=== PATIENT | female | born 1955 | race Caucasian/White ===

== ENCOUNTER 2019-09-21 05:02 | Inpatient (IN) | payer OTHER ==
[~2019-09-21] VITALS: Ht 154.9 cm; Wt 122.5 kg
[2019-09-21] VITALS (7 sets, daily range): BP systolic 118–148; BP diastolic 57–94
[~2019-09-21 05:02] MED LIST: ABILIFY 2 MG2 MG PO; ABILIFY 5 MG TAB5 M1 PO; ADVAIR 500-501 EACH INH; ALLOPURINOL 10100 M1 PO; ASPIR 8181 MG PO; CELEXA 20 MG TA20 M1 PO; CELEXA20 MG PO; DOCUSATE SODIU100 MG PO; FLEXERIL PO; FOLIC ACID 1 MG1 MG PO; GLUCOPHAGE500 MG PO; HYDROCODONE-AP1 EAC6 PO; JANUVIA100 MG PO; KLOR-CON 1010 MEQ PO; LASIX 20 MG TAB20 MG PO; LASIX 40 MG TAB40 M1 PO; LISINOPRIL2.5 MG PO; LORATIDINE 10 M10 M1 PO; METFORMIN HCL500 MG PO; METOPROLOL SUCC25 M1 PO; MOBIC15 MG PO; POTASSIUM20 PO; PRENATAL COMPL1 EACH PO; PRINIVIL5 MG PO; RESTORIL30 MG PO; SINGULAIR 10 MG10 M1 PO; SPIRIVA PO; SPIRIVA18 MCG INH; SYMBICORT160 MCG/4. INH; TOPROL XL25 MG PO; TRAMADOL 50 MG50 MG PO; ULTRAM 50MG TAB50 MG PO; VENTOLIN HFA 1818 GM INH; XARELTO10 MG PO; ZANTAC 150MG T150 M1 PO; ZANTAC 150MG T150 MG PO; ZOCOR 20 MG TAB20 M1 PO; ZOCOR20 MG PO
[2019-09-21] MEDS ORDERED: DILAUDID4 MG PO (05:15)
[2019-09-21] MEDS ORDERED: PROTONIX 20 MG20 MG PO (05:17)
[2019-09-21] MEDS ORDERED: LIPITOR 10 MG10 M1 PO (05:18)
[2019-09-21 06:06] LABS: ABSOLUTE NEUTROPHILS 5.7 thou/uL (1.4-8.2); BASOPHILS 0.7 % (0.0-2.0); EOSINOPHILS 3.6 % (0.0-3.0); HEMATOCRIT 38.5 % (37.0-47.0); HEMOGLOBIN 12.1 gm/dL (12.0-15.0); LYMPHOCYTES 28.2 % (24.0-44.0); MCHC 31.5 g/dL (28.0-37.0); MONOCYTES 6.8 % (1.0-8.0); PLATELET COUNT 272 thou/uL (150-400); POLYS 60.7 % (36.0-66.0); RBC 4.48 mil/uL (4.20-5.00); RDW 13.7 % (10.5-14.5); WBC 9.3 thou/uL (4.0-11.0)
[2019-09-21 06:36] LABS: ANION GAP 4 mmol/L (7-16); BUN 8 mg/dL (7-18); CALCIUM 9.5 mg/dL (8.5-10.1); CHLORIDE 92 mmol/L (98-107); CO2 40 mmol/L (21-32); CREATININE 0.8 mg/dL (0.6-1.0); GLUCOSE 149 mg/dL (74-106); SODIUM 136 mmol/L (136-145); TROPONIN-I <0.06 ng/mL (<0.06)
[2019-09-21 06:39] LABS: POTASSIUM 2.8 mmol/L (3.5-5.1)
[2019-09-21 08:27] LABS: ALBUMIN 3.3 g/dL (3.4-5.0); MAGNESIUM 1.5 mg/dL (1.8-2.4); PHOSPHORUS 3.3 mg/dL (2.5-4.9); TOTAL PROTEIN 6.4 g/dL (6.4-8.2)
[2019-09-21 10:00] LABS: TSH 1.518 uIU/mL (0.358-3.740)
--- NOTE | 2019-09-21 15:04 | EKG ---
[address] [address] ELECTROCARDIOGRAM REPORT Name: ESTEVAN MOTTA Room #: 209-P ADM IN .R.#: [id number] Admission: 09/21/19 Attend Phys: Best Ellis MD Discharge: Date of : 59 Report #: [id number] THIS REPORT FOR: //name// [facility] ED Test Date: 2019-09-21 Test Time: 05:32:53 Pat Name: ESTEVAN MOTTA Department: Room: [facility] Gender: F [employer]visor [employer]: MARIUSZ : 1955 Requested By: Abhinav Wong Order Number: [id number] MD: Jg Mcallister Measurements Intervals [place] Rate: 102 P: 78 PA: 153 QRS: 85 QRSD: 73 T: 44 QT: 346 QTc: 451 Interpretive Statements Sinus tachycardia Borderline right axis deviation Low voltage, precordial leads Compared to ECG 06/10/2016 09:00:56 Sinus rhythm no longer present Electronically Signed On 09-21-2019 15:03:44 [employer]UTCHER TENDER by Jg Mcallister [email or web address] <ELECTRONICALLY SIGNED> By: Jg Mcallister MD 09/21/19 1503 [id number] 0532 Jg Mcallister MD /EPI
[2019-09-21 23:10] LABS: GLYCOHEMOGLOBIN (HGB A1C) 7.8 % (4.8-5.6)
[2019-09-22 05:12] VITALS: BP 116/74
[2019-09-22 07:15] VITALS: BP 138/73
[2019-09-22 12:00] VITALS: BP 138/77
[2019-09-22 15:39] VITALS: BP 130/70
[2019-09-22 15:46] LABS: HEMATOCRIT 39.2 % (37.0-47.0); HEMOGLOBIN 12.5 gm/dL (12.0-15.0); MCH 27.4 pg (26.0-34.0); MCHC 31.8 g/dL (28.0-37.0); RBC 4.56 mil/uL (4.20-5.00); RDW 13.8 % (10.5-14.5); WBC 14.7 thou/uL (4.0-11.0)
[2019-09-22 15:56] LABS: CALCIUM 10.1 mg/dL (8.5-10.1); MAGNESIUM 1.8 mg/dL (1.8-2.4); POTASSIUM 3.9 mmol/L (3.5-5.1)
[2019-09-22 19:17] VITALS: BP 135/80
[2019-09-22 23:34] VITALS: BP 132/83
[2019-09-23 04:30] LABS: HEMATOCRIT 38.9 % (37.0-47.0); HEMOGLOBIN 12.2 gm/dL (12.0-15.0); MCH 27.2 pg (26.0-34.0); MCHC 31.4 g/dL (28.0-37.0); MCV 86.6 fL (80.0-100.0); RBC 4.5 mil/uL (4.20-5.00); RDW 14.1 % (10.5-14.5); WBC 13.6 thou/uL (4.0-11.0)
[2019-09-23 04:53] LABS: CALCIUM 9.5 mg/dL (8.5-10.1); CREATININE 0.8 mg/dL (0.6-1.0); MAGNESIUM 1.7 mg/dL (1.8-2.4)
[2019-09-23 05:42] VITALS: BP 118/85
[2019-09-23 07:00] VITALS: BP 113/80
[2019-09-23 11:30] VITALS: BP 123/77
[2019-09-23 15:50] VITALS: BP 133/92
[2019-09-23 20:16] VITALS: BP 132/76
[2019-09-24 04:35] LABS: CALCIUM 9.5 mg/dL (8.5-10.1); CREATININE 0.8 mg/dL (0.6-1.0); MAGNESIUM 2.3 mg/dL (1.8-2.4); POTASSIUM 4.7 mmol/L (3.5-5.1)
[2019-09-24 04:52] LABS: HEMATOCRIT 39.7 % (37.0-47.0); HEMOGLOBIN 12.5 gm/dL (12.0-15.0); MCH 27.2 pg (26.0-34.0); MCHC 31.5 g/dL (28.0-37.0); MCV 86.4 fL (80.0-100.0); RBC 4.59 mil/uL (4.20-5.00); RDW 14.3 % (10.5-14.5); WBC 12.1 thou/uL (4.0-11.0)
[2019-09-24 05:31] VITALS: BP 132/90
[2019-09-24 07:34] VITALS: BP 144/88
[2019-09-24 11:36] VITALS: BP 141/92
[2019-09-24 17:10] VITALS: BP 138/84
[2019-09-24 21:06] VITALS: BP 137/88
[2019-09-25 04:22] VITALS: BP 122/70
[2019-09-25 05:52] LABS: HEMATOCRIT 40.7 % (37.0-47.0); HEMOGLOBIN 12.8 gm/dL (12.0-15.0); MCH 27.3 pg (26.0-34.0); MCHC 31.4 g/dL (28.0-37.0); MCV 86.8 fL (80.0-100.0); RBC 4.69 mil/uL (4.20-5.00); RDW 14.1 % (10.5-14.5); WBC 9.8 thou/uL (4.0-11.0)
[2019-09-25 06:11] LABS: ANION GAP < 0 mmol/L (7-16); BUN 27 mg/dL (7-18); CALCIUM 9.6 mg/dL (8.5-10.1); CHLORIDE 94 mmol/L (98-107); CO2 42 mmol/L (21-32); CREATININE 0.8 mg/dL (0.6-1.0); GLUCOSE 154 mg/dL (74-106); MAGNESIUM 2.3 mg/dL (1.8-2.4); POTASSIUM 4.6 mmol/L (3.5-5.1); SODIUM 135 mmol/L (136-145)
[2019-09-25 08:54] VITALS: BP 138/92
[2019-09-25 10:25] LABS: BE(vivo) 6.5 mmol/L (-2 to +3); HCO3 34.1 mmol/L (22.0-26.0); PCO2 62.6 mmHg (35.0-45.0); PO2 68.3 mmHg (80.0-100.0); pH 7.354 (7.360-7.450); sO2 92.4 % (92.0-98.0)
--- NOTE | 2019-09-25 10:34 | 2DMMODE ---
[facility] [address] [place] [address] 2 D/M-MODE ECHOCARDIOGRAM Name: KALIAESTEVAN Peace Room #: 209-P ADM IN ..#: [id number] Admission: 09/21/19 Attend Phys: Best Ellis, Discharge: Date of : 59 Report #: [id number] THIS REPORT FOR: //name// APPROVED REPORT Study performed: 09/25/2019 09:37:44 EXAM: Comprehensive 2D, Doppler, and color-flow Echocardiogram Patient Location: Bedside Room #: 209 Status: routine BSA: 2.13 HR: 90 bpm BP: 138/92 mmHg Rhythm: NSR Other Information Study Quality: Fair/Poor parasternal window. Technically limited study due to morbid obesity, COPD, unable to position, heavy breathing. Indications Question pulmonary hypertension. Short of breath. Hx: CHF, COPD, DM, HLP. 2D Dimensions RVDd: 34.54 mm IVSd: 12.00 (7-11mm) LVDd: 40.91 mm PWd: 12.00 (7-11mm) LVDs: 28.95 (25-40mm) Aortic Root: 34.25 mm Volumes Left Atrial Volume (Systole) Single Plane 4CH: 30.52 mL Single Plane 2CH: 37.10 mL LA ESV Index: 17.00 mL/m2 Aortic Valve AoV Peak Jose.: 1.53 m/s AO Peak Gr.: 9.31 mmHg LVOT Max P.51 mmHg LVOT Max V: 1.06 m/s Mitral Valve E/A Ratio: 0.6 [facility] [address] [place] [address] 2 D/M-MODE ECHOCARDIOGRAM Name: ESTEVAN MOTTA Room #: 209-P [facility] IN [facility]#: [id number] Admission: 09/21/19 Attend Phys: Best Ellis, Discharge: Date of : 59 Report #: [id number] MV Decel. Time: 323.66 ms MV E Max Jose.: 0.74 m/s MV A Jose.: 1.16 m/s MV PHT: 93.86 ms IVRT: 89.97 ms Pulmonary Vein P Vein S: 0.45 m/s P Vein D: 0.37 m/s P Vein S/D Ratio: 1.22 Tricuspid Valve TR Peak Jose.: 2.72 m/s RAP Estimate: 10.00 mmHg TR Peak Gr.: 30.00 mmHg PA Pressure: 40.00 mmHg Left Ventricle The left ventricle is normal size. There is grossly normal LV segmental wall motion. Mild concentric left ventricular hypertrophy. Left ventricular systolic function is normal. LVEF is 60-65%. Mild diastolic dysfunction is present (impaired relaxation pattern). Right Ventricle The right ventricle is normal size. The right ventricular systolic function is normal. Atria The left atrium size is normal. The right atrium size is normal. Aortic Valve The aortic valve is poorly visualized. No aortic regurgitation is present. There is no aortic valvular stenosis. Mitral Valve The mitral valve is normal in structure. There is no mitral valve regurgitation noted. No evidence of mitral valve stenosis. Tricuspid Valve The tricuspid valve is normal in structure. Mild tricuspid regurgitation. Estimated PAP is 40mmHg. Pulmonic Valve Pulmonic valve is not well visualized. [facility] [address] [place] [address] 2 D/M-MODE ECHOCARDIOGRAM Name: KALIAESTEVAN Peace Room #: 209-P [facility] IN ..#: [id number] Admission: 09/21/19 Attend Phys: Best Ellis, Discharge: Date of : 59 Report #: [id number] Great Vessels The aortic root is normal in size. Ascending aorta is not well visualized. IVC is normal in size and collapses <50% with inspiration. Pericardium There is no pericardial effusion. <Conclusion> The left ventricle is normal size. LVEF is 60-65%. The right ventricle is normal size. The aortic valve is poorly visualized. The mitral valve is normal in structure. The tricuspid valve is normal in structure. Mild tricuspid regurgitation. Estimated PAP is 40mmHg. Pulmonic valve is not well visualized. There is no pericardial effusion. <ELECTRONICALLY SIGNED> By: Flaquito Aparicio MD 09/25/19 1033 1033 1033 Flaquito Aparicio MD /INF
[2019-09-25 10:45] VITALS: BP 166/85
[2019-09-25 17:38] VITALS: BP 124/72
[2019-09-25 20:17] VITALS: BP 117/72
[2019-09-26 05:08] VITALS: BP 134/77
[2019-09-26 05:38] LABS: HEMATOCRIT 39.2 % (37.0-47.0); HEMOGLOBIN 12.5 gm/dL (12.0-15.0); MCH 27.8 pg (26.0-34.0); MCHC 31.9 g/dL (28.0-37.0); MCV 87.2 fL (80.0-100.0); RBC 4.5 mil/uL (4.20-5.00); RDW 14.2 % (10.5-14.5); WBC 10.5 thou/uL (4.0-11.0)
[2019-09-26 05:49] LABS: ANION GAP < 0 mmol/L (7-16); BUN 28 mg/dL (7-18); CALCIUM 9.2 mg/dL (8.5-10.1); CHLORIDE 96 mmol/L (98-107); CO2 44 mmol/L (21-32); CREATININE 0.8 mg/dL (0.6-1.0); GLUCOSE 184 mg/dL (74-106); MAGNESIUM 2.2 mg/dL (1.8-2.4); POTASSIUM 4.8 mmol/L (3.5-5.1); SODIUM 136 mmol/L (136-145)
[2019-09-26 08:35] VITALS: BP 141/91
[2019-09-26 11:40] VITALS: BP 134/79
[2019-09-26 16:20] VITALS: BP 118/83
[2019-09-26 20:02] VITALS: BP 119/76
[2019-09-27 04:45] VITALS: BP 127/75
[2019-09-27 07:10] VITALS: BP 137/74
--- NOTE | 2019-09-27 08:09 | HC ---
[facility] [place] [address] CONSULTATION Name: ESTEVAN MOTTA Room #: 209-P ADM IN M.R.#: [id number] Admission: 09/21/19 Attend Phys: Best Ellis MD Discharge: Date of : 59 Report #: [id number] THIS REPORT FOR: //name// CC: FAM unknown Best Ellis DATE OF SERVICE: 09/26/2019 ENDOCRINE CONSULTATION NOTE CONSULTING PHYSICIAN: Dr. Miller. REASON FOR CONSULTATION: Uncontrolled type 2 diabetes mellitus, severe hyperglycemia. HISTORY OF PRESENT ILLNESS: This is a 64-year-old female patient whose medical background is significant for COPD with chronic oxygen use and long-term prednisone use as well as hypertension, obesity, hyperlipidemia, depression and type 2 diabetes mellitus. The patient notes that she has chronic issues with COPD, which had prompted her to quit smoking 8 months ago, but with little improvement of her respiratory state. She says that as of 2 months ago, her breathing state had deteriorated further to where she had to start on prednisone therapy, which was maintained for the most part at 10 mg daily for at least 2 months. She said that this was discontinued about 2 weeks ago, which coincided with the time that she developed a sinus infection. A few days prior to presentation, the patient's level of shortness of breath had progressed and she presented to the hospital where she was admitted for further care and monitoring. The patient notes that she was diagnosed with type 2 diabetes mellitus in 2005 and that although she was initially treated with metformin with excellent results and it was completely stopped about a year ago in the setting of a UTI, urosepsis and acute renal insufficiency. Despite recovering her kidney function back to normal, she was switched to Januvia monotherapy and said that she had done rather well on this with her historic hemoglobin A1c over the past 6 months coming back at 6.4 and 5.8%. She admits that she has not been monitoring her blood glucose levels at home due to running out of test strips lately. She is not aware of complications pertaining to diabetic retinopathy or diabetic nephropathy and is not known to have heart disease. However, she does report minimal issues that are nondisruptive with peripheral diabetic neuropathy affecting her feet for the most part. The patient is also hyperlipidemic and is maintained on treatment with atorvastatin therapy. [address] [address] CONSULTATION Name: ESTEVAN MOTTA Peace Room #: 209-P [facility] IN .R.#: [id number] Admission: 09/21/19 Attend Phys: Best Ellis MD Discharge: Date of : 59 Report #: [id number] REVIEW OF SYSTEMS: CONSTITUTIONAL: Fatigue, tiredness, but not fever or chills. HEENT: Sinus issues, sinus pain, sinus congestion, but no ear discharge. PULMONARY: Progressive shortness of breath and cough without hemoptysis. The patient's baseline is noted for COPD that is oxygen and more or less prednisone dependent. CARDIAC: Negative for chest pain, palpitations, but noted for dyspnea on exertion and lower extremity edema. GASTROINTESTINAL: Noted for intermittent issues with abdominal distention, abdominal discomfort, nausea, but not vomiting. NEUROLOGY: Negative for loss of consciousness, seizure activity, but noted for baseline peripheral neuropathy issues. PSYCHIATRIC: Negative for delusions, hallucinations, but the patient has baseline depression difficulties. SKIN: Negative for rash, itching, ulceration or other major abnormalities. Otherwise, review of system is noncontributory other than those mentioned in HPI. PAST MEDICAL HISTORY: 1. Type 2 diabetes mellitus. 2. Peripheral diabetic neuropathy. 3. Hyperlipidemia. 4. COPD, oxygen dependent and prednisone dependent. 5. Obstructive sleep apnea. 6. Obesity. 7. Gout. 8. Hypertension. ACTIVE MEDICATIONS: Include metoprolol 25 mg daily, atorvastatin 40 mg daily, allopurinol 100 mg daily, Lasix 80 mg daily, Singulair 10 mg daily, Celexa 20 mg daily, Abilify 5 mg daily, Spiriva daily, aspirin 81 mg daily, Januvia 100 mg daily, potassium chloride or K-Dur 20 mEq daily, Dilaudid 4 mg q.i.d. p.r.n., Protonix 20 mg daily. DRUG ALLERGIES: SULFA, PENICILLIN. FAMILY HISTORY: Noted for heart disease and hypertension. SOCIAL HISTORY: The patient is a former long-term smoker. She quit smoking about 8 months ago. Denies active use of alcohol or illicit drugs. She lives with her daughter. PHYSICAL EXAMINATION: GENERAL: Pleasant female patient who is not in apparent pain or distress. VITAL SIGNS: Blood pressure is 134/79 mmHg, heart rate is 89 beats per minute, respiration 18 per minute, temperature 36.[address] [address] CONSULTATION Name: ESTEVAN MOTTA Room #: 209-P [facility] IN M.R.#: [id number] Admission: 09/21/19 Attend Phys: Best Ellis MD Discharge: Date of : 59 Report #: [id number] CONSTITUTIONAL: The patient appears comfortable, not in apparent distress. HEENT: Anicteric sclerae. Intact extraocular motion. She has nasal oxygen cannula on. NECK: Supple, without JVD, carotid bruits or lymphadenopathy. I do not appreciate thyromegaly. CHEST: Noted for limited air entry bilaterally with scattered rales and rhonchi. HEART: Regular rate and rhythm without murmurs or gallops. ABDOMEN: Soft and lax. No guarding. Generalized discomfort on deep palpation due to ventral hernia. Active bowel sounds. EXTREMITIES: Lower extremity, trace ankle edema bilaterally. Diminished sensation to light touch. Active pedal pulses. No skin deformities or ulcerations. NEUROLOGIC: Awake, alert and oriented to time, place and person. The remainder of her examination is nonfocal other than for the noted peripheral sensory deficits. PSYCHIATRIC: Pleasant, interactive. Normal mood and affect. LABORATORY RESULTS: Blood glucose values have fluctuated widely, but often been over 250 mg/dL and had a recent high of 490 mg/dL. Sodium 136, potassium 4.8, chloride 96, CO2 of 44, anion gap 0, BUN 28, creatinine 0.8, glucose 184, AST 18, total bilirubin 0.2, calcium 9.2, phosphorus 3.9, magnesium 2.2, alkaline phosphatase 98, total protein 6.4, albumin 3.3, EGFR 73. Lactic acid 2.3. Troponin negative. BNP 104. INR 1.0. White blood count 10.5, hemoglobin 12.5, hematocrit 39.2, platelets 283. TSH 1.51. Hemoglobin A1c 7.8%. ASSESSMENT AND PLAN: 1. Type 2 diabetes mellitus. As noted above, the patient had historically maintained very good control with Januvia monotherapy and prior to that with metformin monotherapy. Her current hemoglobin A1c reflects an uncontrolled outlook of diabetes, which she acknowledges and believes is due to the prednisone that was started 2 months ago and I am inclined to think the same as well. Nonetheless, despite this departure from adequate control, hemoglobin A1c of 7.8 reflects an average glycemic outlook of 150-160 mg/dL. That said, the current glycemic outlook is a cool departure from her usual glycemic pattern and is primarily due to high dose glucocorticoid therapy that is being delivered intravenously as well as the acute stress of her intercurrent illness. I discussed these variables with her at length and she seems to have a very good understanding of these variables. Short term, I would certainly work towards achieving a blood glucose range of 100-180 mg/dL to improve the patient's outlook on morbidity related to her hospital stay and help improve her overall clinical outcome. I certainly would like to use metformin in the setting of steroid-induced severe hyperglycemia. However, the patient received intravenous contrast based CT scan study of her chest 2 days ago and I would like to resume metformin as of tomorrow for added safety precaution. Her kidney function is rather permissible of doing that. Also, the patient was maintained on [address] [address] CONSULTATION Name: ESTEVAN MOTTA Room #: 209-P [facility] IN M.R.#: [id number] Admission: 09/21/19 Attend Phys: Best Ellis MD Discharge: Date of : 59 Report #: [id number] monotherapy at home and she is not currently on any. I will move on to place her on Tradjenta 5 mg daily to provide for that action. In steroid-induced hyperglycemia, the most remarkable glycemic excursions are noted after meals and therefore, I truly agree with covering her meals, specifically with Humalog at a dose of 10 units t.i.d. a.c. For added coverage, I will provide coverage with Lantus at 14 units q.p.m. as well and provide coverage as needed with Humalog supplemental scale low intensity. Blood glucose monitoring will be conducted a.c. and at bedtime and further adjustments will be needed based on these blood sugars. I am hopeful that the patient will not need insulin therapy long-term and that once her steroid treatment is tapered off, we could probably wean off that insulin support. 2. Hyperlipidemia. The patient is on atorvastatin therapy and tolerates it well, she is to continue with the same. 3. Hypertension. The patient is currently on metoprolol and furosemide and tolerates these well, she is to continue the same as her blood pressure is under good control. I have reviewed the patient's clinical care notes, laboratory data, radiologic data past and present for over 35 minutes. I appreciate this consultation by Dr. Miller. <ELECTRONICALLY SIGNED> By: Rain Vargas MD 09/27/19 0809 [id number] Rain Vargas MD /nt
[2019-09-27 11:05] VITALS: BP 148/100
[2019-09-27 16:14] VITALS: BP 141/85
[2019-09-27 20:30] VITALS: BP 138/80
[2019-09-28 01:07] VITALS: BP 141/70
[2019-09-28 08:00] VITALS: BP 141/83
[2019-09-28 15:00] VITALS: BP 117/74
[2019-09-28 20:13] VITALS: BP 122/69
[2019-09-29 07:50] VITALS: BP 100/67
[2019-09-29] MEDS ORDERED: MUCINEX600 MG PO (14:12)
[2019-09-29] MEDS ORDERED: GLUCOPHAGE XR750 MG PO (14:13)
[2019-09-29] MEDS ORDERED: TRADJENTA5 MG PO (14:35)
[2019-09-29] MEDS ORDERED: LANTUS SUBQ (14:35)
[2019-09-29] MEDS ORDERED: RAYOS5 MG PO (14:35)
[2019-09-29] MEDS ORDERED: NYSTATIN100000 UNI SW&SWALLOW (14:35)
[2019-09-29 15:32] VITALS: BP 100/67
[2019-09-29 16:10] VITALS: BP 122/58
== END 2019-09-29 18:30 | disposition home or self-care (01) | DRG 189 ==
LOC: ER 05:02 → EROBS 06:58 → 2N 06:58 → 4W 09-28
PROVIDERS: Emergency Medicine; Internal Medicine; ADMIT Internal Medicine
DX: J96.20 Acute and chronic respiratory failure, unspecified whether with hypoxia or hypercapnia (principal); E66.2 Morbid (severe) obesity with alveolar hypoventilation; J44.1 Chronic obstructive pulmonary disease with (acute) exacerbation; Z68.43 Body mass index [BMI] 50.0-59.9, adult; I50.30 Unspecified diastolic (congestive) heart failure; E11.65 Type 2 diabetes mellitus with hyperglycemia; E78.5 Hyperlipidemia, unspecified; E11.40 Type 2 diabetes mellitus with diabetic neuropathy, unspecified; E66.9 Obesity, unspecified; M10.9 Gout, unspecified; F32.9 Major depressive disorder, single episode, unspecified; E87.6 Hypokalemia; G89.29 Other chronic pain; I11.0 Hypertensive heart disease with heart failure; I27.20 Pulmonary hypertension, unspecified; Z88.0 Allergy status to penicillin; Z90.49 Acquired absence of other specified parts of digestive tract; Z98.49 Cataract extraction status, unspecified eye; Z79.82 Long term (current) use of aspirin; Z79.891 Long term (current) use of opiate analgesic; Z88.1 Allergy status to other antibiotic agents; Z88.8 Allergy status to other drugs, medicaments and biological substances; Z87.891 Personal history of nicotine dependence; Z88.2 Allergy status to sulfonamides; Z99.81 Dependence on supplemental oxygen; Z84.89 Family history of other specified conditions; Z82.49 Family history of ischemic heart disease and other diseases of the circulatory system
CPT/HCPCS: 10047; 10081; 10797

== ENCOUNTER 2019-10-03 16:19 | Inpatient (IN) | payer OTHER ==
[~2019-10-03] VITALS: Ht 154.9 cm; Wt 121.1 kg
[~2019-10-03 16:19] MED LIST changes: +DILAUDID4 MG PO; +GLUCOPHAGE XR750 MG PO; +LANTUS SUBQ; +LIPITOR 10 MG10 M1 PO; +MUCINEX600 MG PO; +NYSTATIN100000 UNI SW&SWALLOW; +PROTONIX 20 MG20 MG PO; +RAYOS5 MG PO; +TRADJENTA5 MG PO
[2019-10-03 16:20] VITALS: BP 102/61
[2019-10-03 17:21] LABS: ABSOLUTE NEUTROPHILS 11.6 thou/uL (1.4-8.2); BASOPHILS 0.4 % (0.0-2.0); EOSINOPHILS 1.2 % (0.0-3.0); HEMATOCRIT 36.2 % (37.0-47.0); HEMOGLOBIN 11.3 gm/dL (12.0-15.0); LYMPHOCYTES 7.7 % (24.0-44.0); MCH 27.3 pg (26.0-34.0); MCHC 31.2 g/dL (28.0-37.0); MCV 87.7 fL (80.0-100.0); MONOCYTES 10.3 % (1.0-8.0); PLATELET COUNT 223 thou/uL (150-400); POLYS 80.4 % (36.0-66.0); RBC 4.13 mil/uL (4.20-5.00); RDW 14.5 % (10.5-14.5); WBC 14.4 thou/uL (4.0-11.0)
[2019-10-03 17:25] LABS: ANION GAP 0 mmol/L (7-16); BUN 7 mg/dL (7-18); CALCIUM 9.8 mg/dL (8.5-10.1); CHLORIDE 95 mmol/L (98-107); CO2 41 mmol/L (21-32); CREATININE 0.7 mg/dL (0.6-1.0); GLUCOSE 200 mg/dL (74-106); POTASSIUM 4.2 mmol/L (3.5-5.1); SODIUM 136 mmol/L (136-145)
[2019-10-03 17:35] LABS: ALBUMIN 2.3 g/dL (3.4-5.0); DIRECT BILIRUBIN < 0.1 mg/dL (<0.1-0.2); SGOT 37 U/L (15-37); SGPT 32 U/L (30-65); TOTAL BILIRUBIN 0.7 mg/dL (<0.1-1.0); TOTAL PROTEIN 6.5 g/dL (6.4-8.2); TROPONIN-I <0.06 ng/mL (<0.06)
[2019-10-03 17:45] LABS: URINE BLOOD NEGATIVE (Negative); URINE CLARITY CLOUDY; URINE COLOR YELLOW; URINE GLUCOSE-RANDOM* NEGATIVE (Negative); URINE KETONES TRACE (Negative); URINE NITRITE-REFLEX NEGATIVE (Negative); URINE PROTEIN (DIPSTICK) 1+ (Negative)
[2019-10-03 17:52] LABS: URINE LEUKOCYTES-REFLEX 1+ (Negative)
[2019-10-03 17:53] LABS: ICTOTEST (BILI CONFIRMATORY) Negative (Negative); URINE BILIRUBIN NEGATIVE (Negative)
[2019-10-03 18:27] LABS: SQUAMOUS 4-10 Moderate /LPF (0-3); URINE WBC-REFLEX >25 Many /HPF (0-5)
[2019-10-03 18:28] LABS: CASTS None Seen /LPF (None Seen); CRYSTALS None Seen /LPF (None Seen); URINE RBC None Seen /HPF (0-2)
--- NOTE | 2019-10-03 21:02 | NUR ---
CALL REPORT TO KASHIF ALCOCER.
[2019-10-03 21:05] VITALS: BP 104/53
[2019-10-03 21:28] VITALS: BP 114/63
--- NOTE | 2019-10-04 03:06 | NUR ---
New pt admitted from the er with a dx of uti and weakness. pt was rescently discharged for copd exacebation. pt is a&ox4. pt has been unable to get out f bed due to weakness. female ext cath in place. pt is on 5l nc and thats her baseline home level. pt has some redness under her right abd fold and underneath her left breast. areas clean and nystatin powder applied. generalized pain controlled with current pain regimen. no s/s of distress. will cont to monitor
[2019-10-04 06:12] LABS: ALBUMIN 2.2 g/dL (3.4-5.0); CALCIUM 8.5 mg/dL (8.5-10.1); CREATININE 0.8 mg/dL (0.6-1.0); POTASSIUM 3.4 mmol/L (3.5-5.1); TOTAL BILIRUBIN 0.8 mg/dL (<0.1-1.0); TOTAL PROTEIN 6.4 g/dL (6.4-8.2)
[2019-10-04 07:15] VITALS: BP 119/70
--- NOTE | 2019-10-04 07:58 | NUR ---
Nutrition: Pt with BMI > 40 (51 kg/m2) - extreme class III obesity. Pt just seen by RD < 1 week ago on 09/28/18 during last admit. Pt had reported wt gain of nearly 70# in 2019 due to chronic steroid use. Here now for UTI, weakness. Not currently on steroids, BGs much more controlled. Fasting BG only 135 mg/dl. At visit last week, RD encouraged various chair exercises given limited mobility. Pt was aware of and already making healthier food choices. No repeat education needed this visit. Defer. Low nutrition risk otherwise.
--- NOTE | 2019-10-04 13:30 | NUR ---
PT ADMITTED RELATED TO WEAKNESS, UTI. CM REVIEWED CHART AND SPOKE WITH CARE TEAM. CM MET WITH PT AT BEDSIDE THIS DAY. PT IS A&O X4. PT WAS JUST DISCHARGED HOME THIS PAST WEEKEND. PT INDICATED SHE RESIDES IN A HOUSE WITH HER DTR WITH A RAMP TO ENTER AND NO STEPS SHE NEEDS TO USE INSIDE. PT INDICATED SHE HAS A MOTORRIZED SCOOTER FOR HOME USE [employer] O2 AT 5L-8L [employer] [facility]ROUGH [facility]. PT INDICATED SHE HAS HCBS THROUGH THE WHOLE PERSON 7 DAYS A WEEK 3.45HRS PER DAY. PT INDICATED SHE PLANS TO RETURN HOME ONCE MEDICALLY STABLE AND INDICATES SHE DOESN'T FEEL SHE'LL NEED HH SERVICES UPON DC. CM TO FOLLOW INDICATED WITH DC PLANNING.
[2019-10-04 15:46] VITALS: BP 127/72
--- NOTE | 2019-10-04 19:38 | NUR ---
Assumed pt care this am, VS stable, 5 lites of O2 via NC this is her base line even at home. Pt stayed on her chair for most of the day, external robles in place and draining light yellow urine. Pain is managed with medication with partial relief since this has been chronic as per the pt. Makes need known, POC followed, temp was elevated this am did not want to take medication, sponge bath given and temp had gone down. Redness under the breast and abdominal folds noted, medications given. No signs or verbalizations of distress have been noted.
[2019-10-04 20:07] VITALS: BP 107/83
--- NOTE | 2019-10-05 03:24 | NUR ---
Pt. rested quietly at intervals during the night when checked on during frequent rounds. She c/o generalized pain and pain med given (see emar) with some relief noted. Tylenol also given for low grade temp. No c/o shortness of air. Bed alarm is on.
[2019-10-05 08:00] VITALS: BP 108/72
--- NOTE | 2019-10-05 14:10 | NUR ---
CARE TEAM INDICATED THAT PT MAY BE MEDICALLY STABLE TO DC HOME TOMORROW. PT HAS ALL RECOMMENDED DME. PT TO RESUME HER HCBS. PT INDICATED SHE ISN'T INTERESTED IN ANY HH SERVICES. PT WILL LIKELY NEED [employer]EL[employer]HIR TRANSPORT HOME. [facility] CAN BE ARRANGED BY CALLING .
[2019-10-05 15:00] VITALS: BP 152/57
[2019-10-05 15:45] LABS: HEMATOCRIT 32.1 % (37.0-47.0); HEMOGLOBIN 10.2 gm/dL (12.0-15.0); MCH 27.5 pg (26.0-34.0); MCHC 31.7 g/dL (28.0-37.0); MCV 86.9 fL (80.0-100.0); RBC 3.7 mil/uL (4.20-5.00); RDW 13.9 % (10.5-14.5); WBC 13.7 thou/uL (4.0-11.0)
[2019-10-05 15:57] LABS: CREATININE 0.8 mg/dL (0.6-1.0); MAGNESIUM 1.4 mg/dL (1.8-2.4)
[2019-10-05 16:27] LABS: POTASSIUM 2.8 mmol/L (3.5-5.1)
[2019-10-05 19:07] VITALS: BP 115/50
--- NOTE | 2019-10-05 19:56 | NUR ---
Assumed pt care this am, vs have beens stable. Pain managed with medications. Pt mentioned that she woke up before jt and felt so confused. Pt sta at the chair for a few hours and wanted to get back into bed, tremors were also noted. FAll precautions in place, bed bath done and bed changes done through out the day, exernal fc would leak d/t changes in position. Medications and diet are well tolerated. Critical labs were called at 16:30, informed Dr. Ellis, got back to me informing that potassium will be replaced at 16:37, reminded at 18:51 for the replacement. Endorsed this to the night nurse. POC followed,.
--- NOTE | 2019-10-06 04:26 | NUR ---
Pt. rested quietly at intervals during the night when checked on during frequent rounds. Po pain medication given for generalized pain (see emar) with some relief noted. Assisted up to the bedside comode. Pt. does get easily short of air upon activity, but will recover with rest. Bed alarm is on.
[2019-10-06 05:05] LABS: HEMATOCRIT 31.8 % (37.0-47.0); HEMOGLOBIN 9.9 gm/dL (12.0-15.0); MCH 27.6 pg (26.0-34.0); MCHC 31.3 g/dL (28.0-37.0); MCV 88.4 fL (80.0-100.0); RBC 3.6 mil/uL (4.20-5.00); RDW 14.2 % (10.5-14.5); WBC 12.4 thou/uL (4.0-11.0)
[2019-10-06 05:14] LABS: CALCIUM 8.9 mg/dL (8.5-10.1); CREATININE 0.8 mg/dL (0.6-1.0); MAGNESIUM 1.6 mg/dL (1.8-2.4); POTASSIUM 3.3 mmol/L (3.5-5.1)
[2019-10-06 07:15] VITALS: BP 117/68
--- NOTE | 2019-10-06 11:53 | HC ---
[facility] [place] [address] CONSULTATION Name: ESTEVAN MOTTA Room #: 455-P ADM IN .R.#: [id number] Admission: 10/03/19 Attend Phys: Best Ellis MD Discharge: Date of : 59 Report #: [id number] THIS REPORT FOR: //name// CC: [facility] physician/PCP Best Ellis DATE OF SERVICE: 10/05/2019 ENDOCRINE CONSULTATION NOTE CONSULTING PHYSICIAN: Dr. Ellis. REASON FOR CONSULTATION: Uncontrolled type 2 diabetes mellitus. HISTORY OF PRESENT ILLNESS: This is a 64-year-old female patient whose medical background is significant for multiple medical issues including type 2 diabetes mellitus, COPD, obesity, and hypertension. The patient was recently hospitalized at [facility] due to severe COPD exacerbation and at that time had associated severe hyperglycemia that required intensive insulin therapy. The patient was discharged home several days ago, only to return to the ER at the time of admission with complaints of fever as well as progressive weakness and chest and back discomfort. The patient was admitted for further care and monitoring. The patient has had diabetes mellitus for many years. She notes that she has been under adequate control with Januvia monotherapy and has certainly done well with it. As noted previously in this dictation, when the patient was admitted 2 weeks ago to the hospital for the issue of severe COPD exacerbation, high dose steroid therapy was needed and the patient ultimately developed severe hyperglycemia, which prompted the use of basal bolus insulin coverage. The plan was for the patient to leave the hospital with at least a partial insulin therapy in addition to her Januvia treatment, but she notes that she completely stopped the insulin at the time of discharge and was only on Januvia 100 mg daily. She has not measured her blood glucose values in the few days that spanned her time between her previous discharge and this current admission. The patient is not aware of issues pertaining to diabetic nephropathy or retinopathy. She is not aware of coronary artery disease. She does have baseline COPD that is oxygen dependent. REVIEW OF SYSTEMS: CONSTITUTIONAL: Fatigue, tiredness, fever, chills, but not body weight changes. HEENT: Negative for sore throat, sinus pain, ear drainage. PULMONARY: Baseline COPD, oxygen dependent, 2 liters per minute. Intermittent cough, but no hemoptysis. CARDIAC: Chest discomfort, palpitations, lower extremity swelling, but not [facility] [address] [place] [address] CONSULTATION Name: ESTEVAN MOTTA Room #: 455-P [facility] IN [facility]#: [id number] Admission: 10/03/19 Attend Phys: Best Ellis MD Discharge: Date of : 59 Report #: [id number] syncope. GASTROINTESTINAL: Abdominal distention, abdominal discomfort, occasional nausea, no vomiting or changes in bowel movement frequency. NEUROLOGY: Negative for loss of consciousness, seizure activity. PSYCHIATRIC: Negative for delusions, hallucinations. Otherwise, review of systems noncontributory other than those mentioned in HPI. PAST MEDICAL HISTORY: 1. Type 2 diabetes mellitus. 2. Hypertension. 3. Obesity. 4. Chronic obstructive pulmonary disease that is oxygen dependent, 2 liters at baseline. 5. Depression. 6. Chronic pain syndrome. 7. Recurrent UTIs. PAST SURGICAL HISTORY: Lumpectomy, cholecystectomy, cataract surgery. OUTPATIENT MEDICATIONS: Include metoprolol 25 mg daily, atorvastatin 10 mg daily, allopurinol 100 mg daily, Lasix 20 mg daily, Singulair 10 mg at bedtime, Celexa 20 mg daily, Abilify 5 mg daily, Spiriva daily, Ventolin HFA q. 4 hours p.r.n., Symbicort as directed, aspirin 81 mg daily, K-Dur 20 mEq daily, Dilaudid 4 mg q.i.d. p.r.n., Protonix 20 mg daily, Januvia 100 mg daily. ALLERGIES: THE PATIENT IS ALLERGIC TO SULFA, PENICILLIN. FAMILY HISTORY: Noted for hypertension. SOCIAL HISTORY: The patient is a former smoker, quit about a year ago. No active alcohol use. PHYSICAL EXAMINATION: GENERAL: Pleasant female patient who is not in apparent pain or distress. VITAL SIGNS: Blood pressure is 108/72 mmHg, heart rate is 58 beats per minute, respirations 20 per minute, temperature 37.2 degrees. CONSTITUTIONAL: The patient appears comfortable, not in apparent distress. HEENT: Anicteric sclerae. Intact extraocular motions. NECK: Supple, without JVD, carotid bruits or lymphadenopathy. I do not appreciate thyromegaly. CHEST: Noted for limited air entry bilaterally. Scattered wheezes, crackles. HEART: Regular rate and rhythm without murmurs or gallops. ABDOMEN: Soft, lax. No guarding, no organomegaly. Active bowel sounds. EXTREMITIES: Lower extremity exam noted for trace ankle edema bilaterally, [facility] [address] [place] [address] CONSULTATION Name: ESTEVAN MOTTA Room #: 455-P [facility] IN [place]#: [id number] Admission: 10/03/19 Attend Phys: Best Ellis MD Discharge: Date of : 59 Report #: [id number] slightly diminished sensation to light touch over both feet. Palpable pedal pulses. NEUROLOGIC: Awake, alert and oriented to time, place and person. The remainder of examination is nonfocal other than for peripheral sensory deficits. PSYCHIATRIC: Pleasant, appropriate and interactive. Normal mood and affect. LABORATORY DATA: Blood glucose over the past 48 hours have mostly been under 180 mg/dL with only a few excursions over 200 mg/dL. Sodium 136, potassium 3.4, chloride 93, CO2 of 42, anion gap 1, BUN 7, creatinine 0.8, glucose 133. AST 28, total bilirubin 0.8, direct bilirubin 0.1, calcium 8.5, phosphorus 3.9, magnesium 2.2, alkaline phosphatase 88. Total protein 6.4, albumin 2.2. EGFR 73. Lactic acid 2.3. Troponin negative. BNP 414. INR 1.0. White blood count 14.4, hemoglobin 11.3, hematocrit 36.2, platelets 223. TSH 1.518. Hemoglobin A1c done on 09/21/2019 was 7.8%. ASSESSMENT AND PLAN: 1. Type 2 diabetes mellitus. The patient has baseline that is noted for hemoglobin A1c that is only slightly off target at 7.8%. She reports a fairly reasonable level of control on Januvia monotherapy. As noted in the HPI, she encountered difficulties with severe hyperglycemia, prompting the need for a basal bolus insulin therapy due to the active use of high dose glucocorticoid therapy intravenously in the setting of her acute pulmonary illness. However, as that resolved and as her steroids were tapered down, we had managed during her previous admission to taper down her insulin intake quickly. Nonetheless, the patient was advised to maintain at the very least Lantus therapy in addition to Januvia at home, which she had not done and she has gone straight to Januvia monotherapy. During this admission, the patient has done much better than her previous one with blood glucose remaining for a good part of the time within target range, but with a few excursions. I certainly do not see a pressing need to reestablish basal bolus therapy. I would like to maintain Tradjenta 5 mg daily in addition to metformin XR 750 mg daily and maintain a sliding scale low intensity to be used as needed while we check her blood glucose values a.c. and at bedtime. 2. Hypertension. The patient's level of blood pressure control is adequate on the current regimen of metoprolol, she is to continue with the same. 3. Hyperlipidemia. The patient is maintained on atorvastatin and tolerates it well, she is to continue with the same. 4. Urinary tract infection/sepsis. The patient is currently on Cipro. She is to continue with the same. 5. Chronic obstructive pulmonary disease. The patient seems to be at her baseline and is stable at her home oxygen requirements. She is to keep the same. I have reviewed clinical care notes, laboratory data, radiologic data, and other pertinent clinical information from the patient's chart for [place] [address] [place] [address] CONSULTATION Name: ESTEVAN MOTTA Room #: 455-P ADM IN M.R.#: [id number] Admission: 10/03/19 Attend Phys: Best Ellis MD Discharge: Date of : 59 Report #: [id number] I appreciate this consultation by Dr. Ellis. <ELECTRONICALLY SIGNED> By: Rain Vargas MD 10/06/19 1153 [id number] Rain Vargas MD /nt
[2019-10-06 16:11] VITALS: BP 115/64
[2019-10-06 19:31] VITALS: BP 107/65
--- NOTE | 2019-10-06 19:38 | NUR ---
ASSUMED PT CARE AT 7AM.PT IN AND OUT OF BED TO CHAIR OR BSC WITH SBA. ASSESSMENT COMPLETED.VSS.PT TOLERATED MEDS AND DIET.DR RECIO AND DOMENIC HERE.ORDER NOTED. BOLUS MAG AND PO POTASSIUM GIVEN TODAY.PT WILL BE DC HOME IN AM IF STABLE.NO VERBAL C/O AT PRESENT.WILL CONTINUE TO MONITOR.
--- NOTE | 2019-10-07 03:11 | NUR ---
PT IS A/O X4.PT CARE ASSUMED WITH PT WATCHING TV IN CHAIR.PT IS UP TO BSC WITH X1 ASSIST.PT IS ON 5L OF O2 NASAL CANULA.PT C/O OF PAIN AND PAIN MGT WITH HYDROMORPHONE.PT IS ACCUCHECK ACHS.WILL CONTINUE TO MONITOR PER POC
[2019-10-07 08:00] VITALS: BP 126/67
[2019-10-07 09:56] LABS: CALCIUM 9.7 mg/dL (8.5-10.1); CREATININE 0.8 mg/dL (0.6-1.0); PHOSPHORUS 2.6 mg/dL (2.5-4.9); POTASSIUM 3.6 mmol/L (3.5-5.1)
--- NOTE | 2019-10-07 13:30 | NUR ---
Assumed pt care at 7am.Assessment completed.vss.Pt c/o generalized bodyache. Hydromorphone po given with am meds with relief.Dr Ellis here,order noted. Pt agreed to dc to snf in am instead of home with home health but pt later called this rn and said she will go home with home health.Pt will be going for chest xray after lunch.Will continue to monitor.
[2019-10-07 15:00] VITALS: BP 117/71
[2019-10-07 19:42] VITALS: BP 114/70
--- NOTE | 2019-10-08 05:07 | NUR ---
PROGRESS PT A/O X4 BUT GETS CONFUSED WHEN SHE FIRST WAKES RE-ORIENTS EASILY. ON 5 LITERS OF O2 BUMPS IT TO 6 LITERS WITH ACTIVITY. RT TX'S CONTINUE. UP TO BSC TO VOID IS ALSO INCONTINENT AT TIMES. ACCUCHECKS AND SSI CONTINUE. PT AND FAMILY WANTS PT TO BE DISCHARGED TO HOME. THEY DO NOT WANT HER TO GO TO A SNF AND FEELS THAT SHE WON'T WANT NEED HOME HEALTH. TAKING DILAUDID FOR PAIN Q6HRS HAS HX OF CHRONIC PAIN SYNDROME. CONTINUE POC.
[2019-10-08 07:30] VITALS: BP 101/69
--- NOTE | 2019-10-08 14:49 | NUR ---
CARE TEAM INDICATED THAT THEY THEY CONSULTED DR. RECIO WITH PULM. CM TO FOLLOW INDICATED WITH DC PLANNING.
[2019-10-08 15:20] VITALS: BP 139/79
--- NOTE | 2019-10-08 16:19 | NUR ---
Assumed pt care at 7am.Pt reported feeling better and slept good last night. Assessment completed.vss.pt tolerated meds and diet.Dr Ellis here,no new order noted but waiting for Dr Jin to see pt prior to dc today. Pt prefered to dc home with home health if possible.Pain med given for generalized bodyache later this shift with relief. Will continue to monitor.
[2019-10-08 19:18] VITALS: BP 111/70
[2019-10-09 07:30] VITALS: BP 114/51
--- NOTE | 2019-10-09 08:14 | NUR ---
PROGRESS PT A/O X4 UP WITH SBA GB AND WALKER. UP TO BSC OR AMBULATES WITH O2 BUMPED UP TO 6 TO 8 LITERS TO BATHROOM. LUNGS DIMINISHED WITH SCATTERED CRACKLES AND RHONCHI NOTD THROUGHOUT. PT REPORTS SPUTUM IS THICK AND HARD TO COUGH UP C/O RIB AND BACK PAIN FROM COUGHING TAKING DILAUDID PO 4 MG Q4HRS PRN. CPAP WITH 5 OF O2 BLED IN THROUGHOUT NOC. EARLIER IN EVENING O2 DISCONNECTED AND SATS DROPPED DOWN TO 73% REATTACHED ON 6 LITERS TOOK A GOOD 15 MINUTES FOR SATS TO MAINTAIN IN THE 90'S AND FOR RESPIRATIONS TO NOT APPEAR LABORED. RT TX'S AND IV ANTIBIOTICS, ACCUCHECKS WITH SSI CONTINUE. PT HOPES TO DC HOME WITH FAMILY CARE.
[2019-10-09 14:57] VITALS: BP 110/68
[2019-10-09] MEDS ORDERED: GLUCOPHAGE XR750 MG PO (15:07)
[2019-10-09] MEDS ORDERED: PREDNISONE 10 M10 MG PO (15:08)
[2019-10-09] MEDS ORDERED: LEVAQUIN 750 M750 MG PO (15:09)
--- NOTE | 2019-10-09 15:26 | NUR ---
CARE TEAM INDICATED THAT PT IS MEDICALLY STABLE TO DC HOME THIS DAY. PT HAS HCBS SERVICES AND INDICATES DESIRE TO NOT HAVE HH SERVICES ORDERED UPON DC. PT HAS HOME O2 AND ALL OTHER DME NEEDS IN THE HOME. PT INDICATED SHE WILL NEED TRANSPORT HOME THIS DAY SHE DOESN'T HAVE HER SCOOTER OR O2 WITH HER. CM REQUESTED AND RECIEVED PERMISSION TO AR[facility]ANGE [facility] FOR PT. SHE WILL NEED WHEELCHAIR VAN TRNASPORT WITH 5L O2. PT ASKED THAT HER MEDS BE CALLED INTO [facility] FOR [employer] FOR HER AND HER DTR. CM PROVIDED PHONE NUMBER TO NURSE. [facility] CAN BE ARRANGED BY CALLING PROVIDE HOME ADDRESS AND INDICATED WHEELCHAIR VAN NEEDED WITH 5L O2.
[2019-10-09 15:58] VITALS: BP 110/68
[2019-10-09 15:59] VITALS: BP 110/68
--- NOTE | 2019-10-09 16:16 | NUR ---
PATIENT DISCHARGING TO HOME TODAY. HOME HEALTH RECOMMENDED. PATIENT REFERRAL, DISCHARGE/HOME HEALTH ORDERS FAXED TO [facility] PER REQUEST. PATIENT HAS USED [facility] IN THE PAST. CALL PLACED TO [facility]. SPOKE WITH MAYUR. ACCEPTING OF PATIENT. PATIENT START OF CARE ANTICIPATED FOR TUESDAY OF NEXT WEEK. UNIT SW NOTIFIED. PATIENT CONFIRMED AGREEMENT FOR HH SOC. CALL PLACED TO [employer] TO NOTIFY. SPOKE WITH JOSE ANTONIO. JOSE ANTONIO TO FACILITATE.
== END 2019-10-09 17:40 | disposition home health service (06) | DRG 871 ==
LOC: ER 16:19 → 4W 19:00 → EROBS 19:00 → 4W 21:07
PROVIDERS: Emergency Medicine; Hospitalist; ADMIT Internal Medicine
PROC: 5A09357 Assistance with Respiratory Ventilation, Less than 24 Consecutive Hours, Continuous Positive Airway Pressure (ICD-10-PCS; principal; 2019-10-09)
DX: A41.9 Sepsis, unspecified organism (principal); J18.9 Pneumonia, unspecified organism; J96.21 Acute and chronic respiratory failure with hypoxia; E43 Unspecified severe protein-calorie malnutrition; Z68.43 Body mass index [BMI] 50.0-59.9, adult; N39.0 Urinary tract infection, site not specified; J44.0 Chronic obstructive pulmonary disease with (acute) lower respiratory infection; F05 Delirium due to known physiological condition; I50.30 Unspecified diastolic (congestive) heart failure; E66.01 Morbid (severe) obesity due to excess calories; E11.9 Type 2 diabetes mellitus without complications; J44.9 Chronic obstructive pulmonary disease, unspecified; F32.9 Major depressive disorder, single episode, unspecified; G89.4 Chronic pain syndrome; E78.5 Hyperlipidemia, unspecified; G47.33 Obstructive sleep apnea (adult) (pediatric); I11.0 Hypertensive heart disease with heart failure; I27.20 Pulmonary hypertension, unspecified; Z90.49 Acquired absence of other specified parts of digestive tract; Z79.891 Long term (current) use of opiate analgesic; Z79.899 Other long term (current) drug therapy; Z88.0 Allergy status to penicillin; Z88.2 Allergy status to sulfonamides; Z88.8 Allergy status to other drugs, medicaments and biological substances; Z87.891 Personal history of nicotine dependence; Z99.81 Dependence on supplemental oxygen; Z98.49 Cataract extraction status, unspecified eye
CPT/HCPCS: 10040

== ENCOUNTER → 2019-11-12 | Outpatient (CLI) | payer OTHER ==
[~2019-11-12] MED LIST changes: +LEVAQUIN 750 M750 MG PO; +PREDNISONE 10 M10 MG PO
== END ==
LOC: CAT 10:19
DX: R91.1 Solitary pulmonary nodule (principal); I70.0 Atherosclerosis of aorta; J43.9 Emphysema, unspecified; M47.815 Spondylosis without myelopathy or radiculopathy, thoracolumbar region